=== PATIENT | male | born 1965 | race Caucasian/White ===

== ENCOUNTER 2021-12-13 21:25 | Inpatient (IN) | payer MEDICARE, OTHER ==
[~2021-12-13] VITALS: Ht 190.5 cm; Wt 135.0 kg
[2021-12-14 01:30] LABS: HEMOGLOBIN 10.7 gm/dl (14.0-17.5); RED BLOOD COUNT 4.23 M/UL (4.20-5.50); WHITE BLOOD COUNT 13.1 K/UL (4.5-11.0)
[2021-12-14 07:19] LABS: HEMOGLOBIN 10.5 gm/dl (14.0-17.5); RED BLOOD COUNT 4.09 M/UL (4.20-5.50); WHITE BLOOD COUNT 12.5 K/UL (4.5-11.0)
[2021-12-14] MEDS ORDERED: TRELEGY ELLIPT1 EACH PO (09:15)
[2021-12-14] MEDS ORDERED: FLONASE ALLER15.8 ML (09:17)
[2021-12-14] MEDS ORDERED: SERTRALINE HCL100 MG PO (09:18)
[2021-12-14] MEDS ORDERED: CLOPIDOGREL75 MG PO (09:18)
[2021-12-14] MEDS ORDERED: VITAMIN D21250 MCG PO (09:19)
[2021-12-14] MEDS ORDERED: IPRAT-ALBUT 0.5-3 ML NEB (09:19)
[2021-12-14] MEDS ORDERED: NIFEDIPINE ER60 M1 PO (09:22)
[2021-12-14] MEDS ORDERED: PROTONIX 40 MG40 M1 PO (09:22)
[2021-12-14] MEDS ORDERED: LOPRESSOR100 MG PO (09:22)
[2021-12-14] MEDS ORDERED: JARDIANCE25 MG PO (09:23)
[2021-12-14] MEDS ORDERED: ELIQUIS5 MG PO (09:23)
[2021-12-14] MEDS ORDERED: CATAPRES 0.1MG0.1 MG PO (09:24)
[2021-12-14] MEDS ORDERED: PROVENTIL HFA6.7 GM PO (09:25)
[2021-12-15 05:48] LABS: RED BLOOD COUNT 4.34 M/UL (4.20-5.50); WHITE BLOOD COUNT 13.8 K/UL (4.5-11.0)
[2021-12-16 04:37] LABS: HEMOGLOBIN 9.7 gm/dl (14.0-17.5); WHITE BLOOD COUNT 15.7 K/UL (4.5-11.0)
[2021-12-16 04:44] LABS: RED BLOOD COUNT 3.74 M/UL (4.20-5.50)
[2021-12-17 05:05] LABS: HEMOGLOBIN 9.5 gm/dl (14.0-17.5); RED BLOOD COUNT 3.77 M/UL (4.20-5.50); WHITE BLOOD COUNT 17.4 K/UL (4.5-11.0)
[2021-12-18 07:20] LABS: HEMOGLOBIN 9.5 gm/dl (14.0-17.5); RED BLOOD COUNT 3.78 M/UL (4.20-5.50); WHITE BLOOD COUNT 19.5 K/UL (4.5-11.0)
--- NOTE | 2021-12-18 23:17 | NUR ---
PATIENT WAS ALERT AND ORIENTED AND ASKED TO BECOME COMFORT CARE. EXPLAINED THE PROCEDURES TO FAMILY AND PATIENT. PAT TOMAS RN WITNESS OF THE CONVERSATION. DRS [employer] BR[employer] OPERATOR NOTIFIED TO UPDATE AND OBTAIN ORDER.
--- NOTE | 2021-12-19 14:32 | NUR ---
1403: PATIENT PRONOUNCED AT 1403 BY SHADE AGGARWAL, ZARINA AND WILLA ZIEGLER RN. FAMILY AT BEDSIDE DURING PASSING. DAMIEN NOTIFIED OF PATIENT AND RULED OUT FOR DONATION AT 1415. DR. BAKER NOTIFIED OF TOD.
== END 2021-12-19 16:45 | disposition expired ==
LOC: CCU 23:17
PROVIDERS: Internal Medicine; Internal Medicine Nephrology; Internal Medicine Pulmonary Disease; ADMIT Family Medicine
PROC: 3E043XZ Introduction of Vasopressor into Central Vein, Percutaneous Approach (ICD-10-PCS; 2021-12-13)
PROC: B24BZZZ Ultrasonography of Heart with Aorta (ICD-10-PCS; principal; 2021-12-14)
PROC: 5A09357 Assistance with Respiratory Ventilation, Less than 24 Consecutive Hours, Continuous Positive Airway Pressure (ICD-10-PCS; 2021-12-14)
PROC: 5A0935A Assistance with Respiratory Ventilation, Less than 24 Consecutive Hours, High Flow/Velocity Cannula (ICD-10-PCS; 2021-12-14)
PROC: 5A09557 Assistance with Respiratory Ventilation, Greater than 96 Consecutive Hours, Continuous Positive Airway Pressure (ICD-10-PCS; 2021-12-14)
DX: I13.0 Hypertensive heart and chronic kidney disease with heart failure and stage 1 through stage 4 chronic kidney disease, or unspecified chronic kidney disease (principal); A41.9 Sepsis, unspecified organism; Z66 Do not resuscitate; Z51.5 Encounter for palliative care; I21.4 Non-ST elevation (NSTEMI) myocardial infarction; L89.323 Pressure ulcer of left buttock, stage 3; I50.43 Acute on chronic combined systolic (congestive) and diastolic (congestive) heart failure; J96.21 Acute and chronic respiratory failure with hypoxia; J69.0 Pneumonitis due to inhalation of food and vomit; I26.99 Other pulmonary embolism without acute cor pulmonale; N17.0 Acute kidney failure with tubular necrosis; I48.20 Chronic atrial fibrillation, unspecified; J44.1 Chronic obstructive pulmonary disease with (acute) exacerbation; E66.2 Morbid (severe) obesity with alveolar hypoventilation; L03.119 Cellulitis of unspecified part of limb; R57.0 Cardiogenic shock; K42.9 Umbilical hernia without obstruction or gangrene; I42.9 Cardiomyopathy, unspecified; N18.32 Chronic kidney disease, stage 3b; J84.10 Pulmonary fibrosis, unspecified; E87.5 Hyperkalemia; I48.0 Paroxysmal atrial fibrillation; E11.22 Type 2 diabetes mellitus with diabetic chronic kidney disease; D63.1 Anemia in chronic kidney disease; E83.42 Hypomagnesemia; E78.5 Hyperlipidemia, unspecified; D69.6 Thrombocytopenia, unspecified; R53.81 Other malaise; I07.1 Rheumatic tricuspid insufficiency; Z99.81 Dependence on supplemental oxygen; Z86.16 Personal history of COVID-19; Z74.01 Bed confinement status; Z79.01 Long term (current) use of anticoagulants; Z86.73 Personal history of transient ischemic attack (TIA), and cerebral infarction without residual deficits; Z98.1 Arthrodesis status; Z88.5 Allergy status to narcotic agent; Z88.0 Allergy status to penicillin; Z88.2 Allergy status to sulfonamides; Z82.3 Family history of stroke; Z79.4 Long term (current) use of insulin; Z68.37 Body mass index [BMI] 37.0-37.9, adult; L89.222 Pressure ulcer of left hip, stage 2
CPT/HCPCS: ECHO; 36415; 36600; 71045; 71250; 74018; 78580; 80048; 80053; 80202; 81001; 82728; 82803; 82962; 83036; 83540; 83550; 83735; 83880; 84100; 84146; 84443; 84484; 85025; 85027; 85379; 85384; 85610; 86140; 87040; 87081; 87086; 92610; 93005; 93306; 93970; 94640; 94660; 94760; A6212; A9540; J1720; J1940; J2060; J2185; J2270; J2405; J3370; J3475; J7030; J7040; J7070